=== PATIENT | female | born 1970 | race Caucasian/White ===

== ENCOUNTER 2016-08-14 20:30 | Emergency (ER) | payer BC ==
[2016-08-14 20:39] VITALS: BMI 34.2
[2016-08-14] MEDS ORDERED: BENADRYL CAP 50 MG PO ONE (21:28)
[2016-08-14] MEDS ORDERED: PREDNISONE TAB 20 MG PO ONE ×2 (21:28→21:37)
--- NOTE | 2016-08-14 21:30 | DR.GENAD ---
HPI - PCP Primary Care Physician: nfd - HPI Comment HPI Comment: PATIENT WENT TO [facility] A NAIL NEAR THE FOUR SINGH AND SNAKE THAT WAS ON IT BIT HER ON HER LEFT ARM. KILL THE SNAKE AND BROUGHT IT TO SHOW ED STAFF. SNAKE APPEAR TO BE A CORN SNAKE. THE AREA IS NOT RED OR SORE. PATIENT TD IS NOT UTD. NO PUNTURE WOUND IS SEEN. - Complaint/Symptoms Chief Complaint Doctors Comments: SNAKE BITE. Chief Complaint:: patient stated she was bit by a small snake on her left forarm. - Nurses notes reviewed Nurses Notes Review: Yes - Source History Provided: Patient - Mode of Arrival Mode of Arrival: Ambulatory - Timing Onset of Chief Complaint: 08/14/16 Came on: Suddenly - Duration Duration: Constant Duration: Hours - Severity Severity: Moderate PMH - PMH Past Medical History: Yes Past Medical History: Hypertension Past Surgical History: Yes Surgical History: , Cholecystectomy, Hysterectomy - Family History History of Family Medical Conditions: No - Social History Does patient currently use any type of tobacco product: No Have you used tobacco products in the last 12 months: No Type of Tobacco Use: None Does any household member use tobacco: No Alcohol Use: None Do you use any recreational Drugs:: No Lives With: Family - infectious screening In the last 2 months have you had wt loss of >10#?: NO Have you had fever, night sweats or hemotysis?: No Have you traveled outside the country in the last 6 months?: No Isolation: Standard ROS - Review of Systems Constitutional: No Symptoms Reported Eyes: No Symptoms Reported ENTM: No Symptoms Reported Respiratoy: No Symptoms Reported Cardiovascular: No Symptoms Reported Gastrointestinal/Abdominal: No Symptoms Reported Genitourinary: No Symptoms Reported Neurological: No Symptoms Reported Musculoskeletal: No Symptoms Reported Integumentary: Other (LT ARM SNAKE BITE AREA.) Hematologic/Lymphatic: No Symptoms Reported Endocrine: No Symptoms Reported All Other Systems: Reviewed and Negative PE - Vital Signs Vitals: Temperature 99.7 F Pulse Rate [Right Brachial] 63 Pulse Rate 78 Respiratory Rate 20 Blood Pressure [Right Arm] 164/75 Blood Pressure 158/98 O2 Sat by Pulse Oximetry 97 - General Limitations: No Limitations General Appearance: Alert - Head Head Exam: Normal Inspection - Eyes Eye exam: Normal Appearance - ENT ENT Exam: Normal External Ear Exam External Ear Exam: Normal External Inspection TM/Canal Exam: Bilateral Normal Nose Exam: Normal Nose Exam Mouth Exam: Normal Inspection Throat Exam: Normal Inspection - Neck Neck Exam: Trachea Midline - Chest Chest Inspection: Symmetric Chest Wall Rise - Respiratory Respiratory Exam: Normal Lung Sounds Bilat Respiratory Exam: Bilateral Clear to Auscultation - Cardiovascular Cardiovascular Exam: Regular Rate, Normal Rhythm, Normal Heart Sounds - Abdominal Exam Abdominal Exam: Normal Bowel Sounds, Soft. negative: Tenderness - Extremities Extremities Exam: Normal Inspection - Back Back Exam: Normal Inspection - Neurologic Neurological Exam: Alert, Oriented X3, CN II-XII Intact, Normal Gait, Reflexes Normal. negative: Motor Sensory Deficit - Psychiatric Psychiatric Exam: Anxious - Skin Skin Exam: Other (NO OBAVIOUS SWOLLING OR ERYTHEMA.) MDM - Additional Information Additional Information Obtained From: Family - Differential Diagnosis Differential Diagnosis: SNAKE BITE/NON PIOSONOUS SNAKE. HYPERTENSION Course - Treatment Treatment: SEE ORDERS. PATIENT WILL TAKE HER BP MED TONIGHT AT HOME. - Education/Counseling Education/Counseling: Patient, Family, Education Educated On: Diagnosis, Needs for Follow Up - Diagnosis Discharge Problem: Hypertension Bite, snake, non-venomous Qualifiers: Encounter type: initial encounter Qualified Code(s): W59.11XA - Bitten by nonvenomous snake, initial encounter - Discharge Plan Disposition: HOME, SELF-CARE Condition: Stable - Follow ups/Referrals Follow ups/Referrals: NFD,None [Primary Care Provider] - 3 days - Instructions Instructions: Snake Bite, Hypertension Additional Instructions: RETURN TO ED IF WORSE. USE BENADRYL NEEDED AT HOME.
[2016-08-14] MEDS ORDERED: BENADRYL CAP/TAB 25 MG PO ONE (21:38)
[2016-08-14] MEDS ORDERED: ADACEL TDaP IM ONE ×2 (22:04→22:07)
[2016-08-14 23:00] VITALS: BP 164/75
== END 2016-08-14 23:00 | disposition home or self-care (01) ==
LOC: ER 20:46
DX: I10 Essential (primary) hypertension (principal); W59.11XA Bitten by nonvenomous snake, initial encounter
CPT/HCPCS: 90471; 99282; J7506

== ENCOUNTER → 2016-10-20 | Outpatient (CLI) | payer BC ==
[~2016-10-20] MED LIST: NS 100 ML IV 100 ML IV ONE
[2016-10-20 11:18] LABS: BASOPHILS # (AUTO) 0.1 X10^3/uL (0.0-0.1); BASOPHILS % (AUTO) 1.2 % (0.2-1.0); EOSINOPHILS # (AUTO) 0.1 x10^3/uL (0.0-0.2); EOSINOPHILS % (AUTO) 1.4 % (0.9-2.9); HEMATOCRIT 42.3 % (36.0-47.0); HEMOGLOBIN 14.3 g/dL (12.0-16.0); LYMPHOCYTES # (AUTO) 2.5 X10^3/uL (1.3-2.9); LYMPHOCYTES % (AUTO) 26.5 % (21.0-51.0); MEAN CORPUSCULAR HEMOGLOBIN 27.7 pg (27.0-34.0); MEAN CORPUSCULAR HGB CONC 33.8 g/dL (33.0-35.0); MEAN CORPUSCULAR VOLUME 81.9 fL (80.0-100.0); MEAN PLATELET VOLUME 8.5 fL (7.4-11.0); MONOCYTES # (AUTO) 0.6 x10^3/uL (0.3-0.8); MONOCYTES % (AUTO) 5.9 % (0.0-13.0); NEUTROPHILS # (AUTO) 6.2 x10^3/uL (2.2-4.8); PLATELET COUNT 213 X10^3/uL (150.0-450.0); RED BLOOD COUNT 5.17 X10^6/uL (3.5-5.4); RED CELL DISTRIBUTION WIDTH 14.3 % (11.6-16.5); WHITE BLOOD COUNT 9.5 X10^3/uL (3.6-10.0)
[2016-10-20 11:36] LABS: ALANINE AMINOTRANSFERASE 24 Units/L (12-78); ALBUMIN 3.2 g/dL (3.4-5.0); ALKALINE PHOSPHATASE 60 Units/L (46-116); ASPARTATE AMINO TRANSFERASE 14 Units/L (15-37); BLOOD UREA NITROGEN 9 mg/dL (7-18); CALCIUM 8.5 mg/dL (8.5-10.1); CARBON DIOXIDE 26.5 mmol/L (21-32); CHLORIDE 105 mmol/L (98-107); COR CA(FOR HYPOALB) 9.1 mg/dL (8.5-10.1); CREATININE 0.81 mg/dL (0.55-1.02); GLUCOSE 81 mg/dL (65-99); SODIUM 138 mmol/L (136-145); TOTAL PROTEIN 7.2 g/dL (6.4-8.2); eGFR BLACK RACES > 60 (>60); eGFR NON BLACK RACES > 60 (>60)
--- NOTE | 2016-10-20 11:53 | CT ---
HISTORY: Right lower quadrant pain, right upper quadrant pain, polycystic ovaries. Study: CT abdomen and pelvis with contrast Comparison: None. Technique: Multiple axial images of the abdomen and pelvis were obtained from the lung bases to the pubic symph ysis after the administration of IV contrast. Dose reduction techniques including Automated Exposur e Control (AEC) and adjustment of mA and kV were utilized. Findings: The visualized portions of the lung bases are unremarkable. Multiple nonobstructing nephroliths with in the right inferior renal pole. The largest measuring 6 mm in greatest dimension. The liver, sple en, pancreas, left kidney, and adrenal glands are unremarkable in their CT appearance. The gallbladd er is surgically absent. Thickening of the appendix with associated mucosal enhancement and periapp endiceal stranding. No free air or significant free fluid to suggest perforation or abscess formatio n. Remaining large and small bowel appear normal. The uterus appears surgically absent. The ovaries are unremarkable. The urinary bladder is grossly unremarkable. The bony structures are grossly int act. IMPRESSION: 1. Acute appendicitis without free air to suggest perforation or focal fluid collection to suggest abscess formation. 2. Other chronic findings as above. Reported By:
== END ==
LOC: RAD 10:44
PROVIDERS: ATTEND Nurse Practitioner Family
DX: R10.31 Right lower quadrant pain (principal); R10.11 Right upper quadrant pain; R11.2 Nausea with vomiting, unspecified; E28.2 Polycystic ovarian syndrome; K35.89 Other acute appendicitis
CPT/HCPCS: 36415; 74177; 80053; 85025; A4222

== ENCOUNTER → 2017-07-19 | Outpatient (CLI) | payer BC ==
--- NOTE | 2017-07-19 10:35 | CT ---
HISTORY: Right flank pain. Study: CT abdomen and pelvis with contrast. Comparison: 10/20/2016. Technique: Multiple axial images of the abdomen and pelvis were obtained from the lung bases to the p ubic symphysis after the administration of IV contrast. Findings: The included portions of the lung bases are clear. The gallbladder is surgically absent. Th e liver, pancreas, spleen, adrenal glands and left kidney are unremarkable in their CT appearance. Th ere is an obstructing 7 mm calculus in the proximal right ureter with mild to moderate hydronephrosis on the right. There is hypoenhancement of the right renal parenchyma without perirenal stranding. Th e urinary bladder is partially distended and grossly unremarkable. The uterus and appendix are surgic ally absent. The right and left ovary are present with left ovarian cysts noted. The colon is nondist ended and not optimally evaluated. There is no small bowel dilatation. There is no significant mesent jesu stranding or lymphadenopathy. There is no intraperitoneal free air or free fluid. The abdominal aorta is nonaneurysmal. The bony structures are grossly unremarkable. IMPRESSION: Obstructing 7 mm stone in the proximal right ureter with [id number] hydronephrosis and hypoenha ncement of the right kidney compatible with obstructive uropathy. Reported By:
== END ==
LOC: RAD 09:03
PROVIDERS: ATTEND Nurse Practitioner Family
DX: M54.5 Low back pain (principal); R10.31 Right lower quadrant pain; R31.29 Other microscopic hematuria; Z87.442 Personal history of urinary calculi; N13.2 Hydronephrosis with renal and ureteral calculous obstruction
CPT/HCPCS: 74177; A4222

== ENCOUNTER 2018-02-03 11:30 | Observation (INO) ==
[2018-02-03] MEDS ORDERED: ASPIRIN ONE (12:03)
[2018-02-03] MEDS ORDERED: NITROSTAT SL ONE (12:03)
[2018-02-03] MEDS: ASPIRIN PO SCH (12:23)
[2018-02-03 12:24] LABS: BASOPHILS # (AUTO) 0.1 X10^3/uL (0.0-0.1); BASOPHILS % (AUTO) 0.9 % (0.2-1.0); EOSINOPHILS # (AUTO) 0.1 x10^3/uL (0.0-0.2); EOSINOPHILS % (AUTO) 1.2 % (0.9-2.9); HEMATOCRIT 42.7 % (36.0-47.0); HEMOGLOBIN 14.8 g/dL (12.0-16.0); LYMPHOCYTES # (AUTO) 1.9 X10^3/uL (1.3-2.9); MEAN CORPUSCULAR HEMOGLOBIN 29.2 pg (27.0-34.0); MEAN CORPUSCULAR HGB CONC 34.7 g/dL (33.0-35.0); MEAN CORPUSCULAR VOLUME 84.2 fL (80.0-100.0); MEAN PLATELET VOLUME 8.7 fL (7.4-11.0); MONOCYTES # (AUTO) 0.5 x10^3/uL (0.3-0.8); NEUTROPHILS # (AUTO) 5.8 x10^3/uL (2.2-4.8); NEUTROPHILS % (AUTO) 68.9 % (42.0-75.0); PLATELET COUNT 191 X10^3/uL (150.0-450.0); RED BLOOD COUNT 5.07 X10^6/uL (3.5-5.4); RED CELL DISTRIBUTION WIDTH 13.5 % (11.6-16.5); WHITE BLOOD COUNT 8.4 X10^3/uL (3.6-10.0)
[2018-02-03 12:36] LABS: ALANINE AMINOTRANSFERASE 24 Units/L (12-78); ALBUMIN 3.4 g/dL (3.4-5.0); ALKALINE PHOSPHATASE 77 Units/L (46-116); ASPARTATE AMINO TRANSFERASE 18 Units/L (15-37); BLOOD UREA NITROGEN 7 mg/dL (7-18); CALCIUM 8.7 mg/dL (8.5-10.1); CARBON DIOXIDE 26.9 mmol/L (21-32); CHLORIDE 105 mmol/L (98-107); COR NA(FOR HYPERGLY) 141 mmol/L (136-145); CREATININE 0.73 mg/dL (0.55-1.02); SODIUM 140 mmol/L (136-145); TOTAL PROTEIN 7.1 g/dL (6.4-8.2); eGFR NON BLACK RACES > 60 (>60)
--- NOTE | 2018-02-03 12:40 | DR.CP ---
HPI Time Seen Time Seen by Provider: 02/03/18 12:39 PCP Primary Care Physician: JAIRO MOE HPI Comment HPI Comment: PATIENT HAVE HEAVINESS AND TIGHTNESS IN THE CHEST FOR 3 DAYS. WORSE SINCE LAST NIGHT. Complaint Chief Complaint Doctor Comments: CHEST PAIN TIMES 3 DAYS. Chief Complaint:: PT C/O OF TIGHTNESS IN HER CHEST , AND THAT SHE FEELS ALITTLE BIT PT SAYS IT HAS BEEN GOING ON FOR 3 DAYS AND IT GOT WORSE LAST NIGHT, PT STATES THERE IS A DULL HEAVY FEELING AND THAT SHE HAS A STRONG FAMILY HX OF HEART DISEASE AND THAT SHE THOUGHT IT MAY BE HER ASTHMA BUT HER INHAILERS DID NOT HELP,,BR Self Treatment fo Chief Complaint: NONE Reviewed Nurses Notes Review: Yes Source History Provided: Patient Mode of Arrival Mode of Arrival: Ambulatory Timing Onset of Chief Complaint: 02/01/18 Came on: Suddenly Pain: Present Now Duration Duration: Constant Location Chest Pain Radiation Location: None Context Onset: At rest and With light exertion Cardiac Risk Factors: HTN PE Risk Factors: None History of: None Prehospital Care: None and Other (TOOK ASTHMA MED.) Quality Quality: Aching and Pleuritic (TIGHTNESS.) Severity Severity: Moderate Modifying Factors Worsens: Nothing Impoves: Nothing Associated Signs and Symptoms Associated Signs and Symptoms: Shortness of Breath PMH PMH Past Medical History: Yes Past Medical History: Asthma and Hypertension Past Surgical History: Yes Surgical History: Appendectomy, , Cholecystectomy and Hysterectomy Family History History of Family Medical Conditions: Yes Family Medical History: [place] Social History Does patient currently use any type of tobacco product: No Have you used tobacco products in the last 12 months: No Type of Tobacco Use: None Does any household member use tobacco: No Alcohol Use: None Do you use any recreational Drugs:: No Lives With: Family Lives Where: Home infectious screening In the last 2 months have you had wt loss of >10#?: NO Have you had fever, night sweats or hemotysis?: No Have you traveled outside the country in the last 6 months?: No Isolation: Standard ROS Review of Systems Constitutional: No Symptoms Reported Eyes: No Symptoms Reported ENTM: No Symptoms Reported Respiratoy: Short of Breath Cardiovascular: Chest Pain Gastrointestinal/Abdominal: No Symptoms Reported Genitourinary: No Symptoms Reported Neurological: No Symptoms Reported Musculoskeletal: No Symptoms Reported Integumentary: No Symptoms Reported Hematologic/Lymphatic: No Symptoms Reported Endocrine: No Symptoms Reported Psychiatric: No Symptoms Reported All Other Systems: Reviewed and Negative PE Vitals Vitals: Temperature 98.6 F Pulse Rate [Left Brachial] 55 Pulse Rate 69 Respiratory Rate 20 Blood Pressure [Right Arm] 117/58 Blood Pressure 134/71 O2 Sat by Pulse Oximetry 96 General Limitations: No Limitations General Appearance: Alert Head Head Exam: Normal Inspection Eyes Eye exam: Normal Appearance ENT ENT Exam: Normal Exam Chest Chest Inspection: Normal Inspection Respiratory Respiratory Exam: Normal Lung Sounds Bilat Respiratory Exam: Bilateral: Clear to Auscultation Cardiovascular Cardiovascular Exam: Regular Rate Pulse: Normal Edema: Normal Abdominal Exam Abdominal Exam: Normal Inspection Extremities Extremities Exam: Normal Inspection Back Back Exam: Normal Inspection Neurologic Neurological Exam: Alert and Oriented X3; negative Motor Sensory Deficit Psychiatric Psychiatric Exam: Normal Affect and Normal Mood Skin Skin Exam: Intact MDM Differential Diagnosis Differential Diagnosis: Angina, Chest Wall Pain, Myocardial Infarction, Pneumonia and Pneumothorax COURSE Treatment Treatment: SEE ORDERS. Consultation Consultation Comments: PATIENT ADMITTED TO DR. JURADO. Education/Counseling Education/Counseling: Patient Educated On: Diagnosis ROR Labs Reviewed Laboratory Results Reviewed?: Yes Result Diagrams: 02/04/18 04:45 02/04/18 04:45 Laboratory: WBC 9.6 X10^3/uL (3.6-10.0) 02/04/18 04:45 RBC 4.82 X10^6/uL (3.5-5.4) 02/04/18 04:45 Hgb 14.2 g/dL (12.0-16.0) 02/04/18 04:45 Hct 40.7 % (36.0-47.0) 02/04/18 04:45 MCV 84.6 fL (80.0-100.0) 02/04/18 04:45 MCH 29.5 pg (27.0-34.0) 02/04/18 04:45 MCHC 34.9 g/dL (33.0-35.0) 02/04/18 04:45 RDW 13.7 % (11.6-16.5) 02/04/18 04:45 Plt Count 178 X10^3/uL (150.0-450.0) 02/04/18 04:45 MPV 9.4 fL (7.4-11.0) 02/04/18 04:45 Neut % (Auto) 61.0 % (42.0-75.0) 02/04/18 04:45 Lymph % (Auto) 30.0 % (21.0-51.0) 02/04/18 04:45 [place] % (Auto) 6.9 % (0.0-13.0) 02/04/18 04:45 Eos % (Auto) 1.5 % (0.9-2.9) 02/04/18 04:45 Baso % (Auto) 0.6 % (0.2-1.0) 02/04/18 04:45 Neut # (Auto) 5.9 x10^3/uL (2.2-4.8) H 02/04/18 04:45 Lymph # (Auto) 2.9 X10^3/uL (1.3-2.9) 02/04/18 04:45 [place] # (Auto) 0.7 x10^3/uL (0.3-0.8) 02/04/18 04:45 Eos # (Auto) 0.1 x10^3/uL (0.0-0.2) 02/04/18 04:45 Baso # (Auto) 0.1 X10^3/uL (0.0-0.1) 02/04/18 04:45 Absolute Nucleated RBC 0.2 /100WBC 02/04/18 04:45 INR Target Range - 02/03/18 12:14 INR 0.90 (0.8-1.3) 02/03/18 12:14 APTT 28.0 SECONDS (22.9-36.5) 02/03/18 12:14 PTT Comment - 02/03/18 12:14 D-Dimer < 100 ng/mL (0-400) 02/03/18 12:23 Sodium 140 mmol/L (136-145) 02/04/18 04:45 Corrected Sodium TNP 02/04/18 04:45 Potassium 3.9 mmol/L (3.5-5.1) 02/04/18 04:45 Chloride 105 mmol/L (98-107) 02/04/18 04:45 Carbon Dioxide 26.3 mmol/L (21-32) 02/04/18 04:45 BUN 9 mg/dL (7-18) 02/04/18 04:45 Creatinine 0.75 mg/dL (0.55-1.02) 02/04/18 04:45 Est GFR (MDRD) Af Amer > 60 (>60) 02/04/18 04:45 Est GFR (MDRD) Non-Af > 60 (>60) 02/04/18 04:45 Glucose 92 mg/dL (65-99) 02/04/18 04:45 Calcium 8.5 mg/dL (8.5-10.1) 02/04/18 04:45 Corrected Calcium 9.4 mg/dL (8.5-10.1) 02/04/18 04:45 Magnesium 2.0 mg/dL (1.7-2.9) 02/03/18 12:14 Total Bilirubin 0.40 mg/dL (0.2-1.0) 02/04/18 04:45 AST 19 Units/L (15-37) 02/04/18 04:45 ALT 23 Units/L (12-78) 02/04/18 04:45 Alkaline Phosphatase 66 Units/L (46-116) 02/04/18 04:45 Creatine Kinase 33 Units/L (26-192) 02/04/18 00:20 CK-MB (CK-2) < 1.0 ng/mL (0-4.0) 02/04/18 00:20 CK/CKMB % Calc 3.0 % (<4) 02/04/18 00:20 Troponin I < 0.02 ng/mL (0-1.5) 02/04/18 00:20 Total Protein 6.3 g/dL (6.4-8.2) L 02/04/18 04:45 Albumin 2.9 g/dL (3.4-5.0) L 02/04/18 04:45 Globulin 3.4 g/dL (2.5-4.5) 02/04/18 04:45 Albumin/Globulin Ratio 0.9 Ratio (1.1-2.1) L 02/04/18 04:45 Specimen Type Clean catch urine 02/03/18 18:27 Urine Color Yellow (YELLOW) 02/03/18 18:27 Urine Appearance Clear (CLEAR) 02/03/18 18:27 Urine pH 6.0 (5.0 - 8.0) 02/03/18 Ur Specific [place] 1.020 (1.000-1.030) 02/03/18 Urine Protein Negative (NEGATIVE) 02/03/18 Urine Glucose (UA) Negative (NEGATIVE) 02/03/18 Urine Ketones Negative (NEGATIVE) 02/03/18 Urine Occult Blood 2+ (NEGATIVE) 02/03/18 Urine Nitrite Negative (NEGATIVE) 02/03/18 Urine Bilirubin Negative (NEGATIVE) 02/03/18 Urine Urobilinogen Normal (NORMAL) 02/03/18 Ur Leukocyte Esterase Negative (NEGATIVE) 02/03/18 Urine RBC 3-5 /HPF (NONE SEEN) 02/03/18 Urine WBC None seen /HPF (NONE SEEN) 02/03/18 Ur Squamous Epith Cells Moderate /HPF (NEGATIVE) 02/03/18 Urine Bacteria Negative /HPF (NEGATIVE) 02/03/18 Urine Mucus Few /HPF (NEGATIVE) 02/03/18 Ur Culture Indicated? No/not indicated 02/03/18 XRAY XRAY Interpreted by: Radiologist XRAY Findings: REPORT NOTED. Instructions Instructions: Heartburn, Gldn-ti-[id number] Food Choices for Gastroesophageal Reflux Disease, Adult Nonspecific Chest Pain, Gstd-ld-[id number] Hypertension, Mmjp-[id number] Gastroesophageal Reflux Disease, Adult, Iwkd-[id number] Forms: Patient Portal
--- NOTE | 2018-02-03 12:52 | RAD ---
HISTORY: Chest tightness. Prior history of asthma and hypertension Study: Single-view chest Comparison: No priors Findings: Trachea is midline. Heart size is normal to lungs and pleural spaces are clear. No infiltrate, CHF, p leural fluid or pneumothorax is seen. Osseous structures are intact. IMPRESSION: Remarkable chest. Reported By:
[2018-02-03 12:56] LABS: CREATINE KINASE MB < 1.0 ng/mL (0-4.0); TROPONIN I < 0.02 ng/mL (0-1.5)
[2018-02-03 12:57] LABS: CREATINE KINASE 51 Units/L (26-192)
[2018-02-03] MEDS ORDERED: FLUTICASONE IN PRN (15:50)
[2018-02-03] MEDS ORDERED: PATIENT'S HOME MEDICATION (Albuterol Sulfate 1 INH) IN PRN (15:50)
[2018-02-03] MEDS ORDERED: PULMICORT NEB TX 0.5 MG NEB PRN (16:07)
[2018-02-03] MEDS ORDERED: PROVENTIL NEB TX 0.083% 2.5MG/ 3ML NEB PRN (16:07)
[2018-02-03] MEDS ORDERED: MORPHINE SULFATE INJ 2 MG INJ IVP PRN (16:38)
[2018-02-03] MEDS ORDERED: MORPHINE SULFATE JET NEB NEB ONE (16:39)
[2018-02-03] MEDS ORDERED: FLUVIRIN IM ONE ×2 (17:23→21:35)
[2018-02-03] MEDS ORDERED: PREVNAR 13 IM ONE ×2 (17:23→21:35)
[2018-02-03 18:34] LABS: BILIRUBIN,URINE NEGATIVE (NEGATIVE); BLOOD/HEMOGLOBIN,URINE 2+ (NEGATIVE); GLUCOSE, URINE NEGATIVE (NEGATIVE); KETONES,URINE NEGATIVE (NEGATIVE); LEUKOCYTE ESTERASE ,URINE NEGATIVE (NEGATIVE); NITRITES,URINE NEGATIVE (NEGATIVE); PROTEIN,URINE NEGATIVE (NEGATIVE); UROBILINOGEN,URINE NORMAL (NORMAL)
[2018-02-03 18:38] LABS: APPEARANCE,URINE CLEAR (CLEAR); BACTERIA,URINE NEGATIVE /HPF (NEGATIVE); COLOR,URINE YELLOW (YELLOW); MUCUS,URINE FEW /HPF (NEGATIVE); SQUAMOUS EPITHELIAL CELL,UR MODERATE /HPF (NEGATIVE)
[2018-02-03 18:49] LABS: CREATINE KINASE 33 Units/L (26-192); CREATINE KINASE MB < 1.0 ng/mL (0-4.0); TROPONIN I < 0.02 ng/mL (0-1.5)
[2018-02-04 00:49] LABS: CREATINE KINASE 33 Units/L (26-192); CREATINE KINASE MB < 1.0 ng/mL (0-4.0); TROPONIN I < 0.02 ng/mL (0-1.5)
[2018-02-04 05:48] LABS: BASOPHILS # (AUTO) 0.1 X10^3/uL (0.0-0.1); BASOPHILS % (AUTO) 0.6 % (0.2-1.0); EOSINOPHILS # (AUTO) 0.1 x10^3/uL (0.0-0.2); EOSINOPHILS % (AUTO) 1.5 % (0.9-2.9); HEMATOCRIT 40.7 % (36.0-47.0); HEMOGLOBIN 14.2 g/dL (12.0-16.0); LYMPHOCYTES # (AUTO) 2.9 X10^3/uL (1.3-2.9); MEAN CORPUSCULAR HEMOGLOBIN 29.5 pg (27.0-34.0); MEAN CORPUSCULAR HGB CONC 34.9 g/dL (33.0-35.0); MEAN CORPUSCULAR VOLUME 84.6 fL (80.0-100.0); MEAN PLATELET VOLUME 9.4 fL (7.4-11.0); MONOCYTES # (AUTO) 0.7 x10^3/uL (0.3-0.8); MONOCYTES % (AUTO) 6.9 % (0.0-13.0); NEUTROPHILS # (AUTO) 5.9 x10^3/uL (2.2-4.8); PLATELET COUNT 178 X10^3/uL (150.0-450.0); RED BLOOD COUNT 4.82 X10^6/uL (3.5-5.4); RED CELL DISTRIBUTION WIDTH 13.7 % (11.6-16.5); WHITE BLOOD COUNT 9.6 X10^3/uL (3.6-10.0)
[2018-02-04 06:10] LABS: ALANINE AMINOTRANSFERASE 23 Units/L (12-78); ALBUMIN 2.9 g/dL (3.4-5.0); ALKALINE PHOSPHATASE 66 Units/L (46-116); ASPARTATE AMINO TRANSFERASE 19 Units/L (15-37); BLOOD UREA NITROGEN 9 mg/dL (7-18); CALCIUM 8.5 mg/dL (8.5-10.1); CARBON DIOXIDE 26.3 mmol/L (21-32); CHLORIDE 105 mmol/L (98-107); COR CA(FOR HYPOALB) 9.4 mg/dL (8.5-10.1); CREATININE 0.75 mg/dL (0.55-1.02); SODIUM 140 mmol/L (136-145); TOTAL PROTEIN 6.3 g/dL (6.4-8.2); eGFR NON BLACK RACES > 60 (>60)
[2018-02-04 08:21] VITALS: BMI 36.3
[2018-02-04] MEDS: ASPIRIN PO SCH (08:29)
[2018-02-04] MEDS ORDERED: ZESTRIL TAB 10 MG PO SCH (09:00)
[2018-02-04] MEDS ORDERED: PROTONIX INJ 40 MG VIAL IVP ONE (09:57)
[2018-02-04 10:01] VITALS: BP 117/58
== END 2018-02-04 11:10 | disposition home or self-care (01) ==
LOC: ER 11:44 → MED/SURG 11:44
PROVIDERS: ADMIT Internal Medicine; ATTEND Internal Medicine
DX: R07.89 Other chest pain; Z23 Encounter for immunization; K21.9 Gastro-esophageal reflux disease without esophagitis; J45.998 Other asthma; I10 Essential (primary) hypertension
CPT/HCPCS: 36415; 71010; 71045; 80053; 81001; 82550; 82553; 82947; 83735; 84484; 85025; 85378; 85610; 85730; 90686; 93005; 93010; 94760; 96365; 96372; 96374; 99283; 99284; A4216; A4222; C9113; 90670; G0378; J2270